=== PATIENT | female | born 1960 | race Asian ===

== ENCOUNTER 2016-06-22 12:47 | Emergency (ER) | payer BC ==
[~2016-06-22] VITALS: Ht 160 cm; Wt 60.5 kg
[2016-06-22 13:23] VITALS: Ht 160 cm; Wt 60.5 kg
[2016-06-22] MEDS ORDERED: ERYTOPOI BOTH EYES (15:41)
--- NOTE | 2016-06-22 15:49 | ERD ---
ER Documentation Chief Complaint Date/Time DATE: 06/22/16 TIME: 15:45 Chief Complaint both eye redness,swelling,yellowish discharge HPI This is a 55-year-old female presents to the ER with bilateral eye redness and yellow discharge that started yesterday. Patient states that this morning she noticed her left upper eyelid was swollen. Patient states that this morning her eyes were glued shut together. Patient denies any blurry vision. Patient states that she was sick with upper respiratory infection symptoms last week. She denies any vision loss she denies any eye pain. Icing any halos or any flashing lights. ROS 12 point review of systems was done, all negative except per HPI. Medications Home Meds Active Scripts Erythromycin* (Erythromycin* Ophthalmic) 1 Applic Oint, 1 APPLIC BOTH EYES QID for 7 Days, EA Prov:RAFAT PANTOJA 06/22/16 PMhx/Soc Medical and Surgical Hx: pt denies Medical Hx, pt denies Surgical Hx Physical Exam Vitals Vital Signs Date Time Temp Pulse Resp B/P Pulse Ox O2 Delivery O2 Flow Rate FiO2 06/22/16 13:23 98.1 78 18 172/86 98 Physical Exam GENERAL: The patient is well developed and appropriate for usual state of health , in no apparent distress. HEENT: Atraumatic. Patient has bilateral yellow eye discharge from both eyes. Conjunctiva is injected bilaterally. Left eyelid is slightly swollen. Nonpainful ocular movements. CHEST: Clear to auscultation bilaterally. There are no rales, wheezes or rhonchi. HEART: Regular rate and rhythm. No murmurs, clicks, rubs or gallops. NEURO: Alert and oriented. Procedures/MDM Subconjunctival hemorrhage, bacterial conjunctivitis, viral conjunctivitis, allergic conjunctivitis,orbital cellulitis, hyphema, corneal abrasion, keratitis , uveitis, angle-closure glaucoma, retinal detachment, ruptured globe. This is likely conjunctivitis. Suspicion for orbital cellulitis is low. Patient does not have any photophobia and she does not have any painful extraocular movements. Patient was examined by myself and by Dr. Sorto. Patient will be sent home with erythromycin ophthalmic ointment. Patient needs to follow-up with her primary care doctor within 1-2 days return to ER sooner symptoms worsen. My medical decision making was shared with the patient she understands and agrees with plan. Departure Diagnosis: Primary Impression: Conjunctivitis Condition: Stable Patient Instructions: Conjunctivitis Caused by Infection Additional Instructions: Call your primary care doctor TOMORROW for an appointment during the next 1-2 days.See the doctor sooner or return here if your condition worsens before your appointment time. RAFAT PANTOJA Jun 22, 2016 15:49
== END 2016-06-22 15:54 | disposition home or self-care (01) ==
LOC: FTE 12:47
DX: H10.9 Unspecified conjunctivitis (principal)
CPT/HCPCS: 99283